=== PATIENT | female | born 1980 | race Caucasian/White ===

== ENCOUNTER 2024-02-05 16:09 | Emergency (ER) | payer SELFPAY ==
--- NOTE | ~2024-02-05 | XR_ITS ---
EXAMINATION: XR TIBIA AND FIBULA, RIGHT CLINICAL INFORMATION: Injury and pain COMPARISON: None available. TECHNIQUE: AP and lateral views of the right tibia and fibula were obtained. FINDINGS: The bones and soft tissues are normal. No fracture. No osseous lesions. XR/XR tibia fibula RT 2V IMPRESSION: Normal right tibia and fibula.
--- NOTE | ~2024-02-05 | XR_ITS ---
EXAMINATION: XR HAND, RIGHT CLINICAL INFORMATION: Injury, pain COMPARISON: None available. TECHNIQUE: PA, lateral, and oblique views of the right hand. FINDINGS: No acute fracture. Alignment is anatomic. Joint spaces are maintained. No erosions or soft tissue calcifications. XR/XR hand RT 2V IMPRESSION: No radiographic evidence of acute abnormality involving the right hand.
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
[2024-02-05 16:21] VITALS: BP 128/71; BP 130/82; PULSE 82; PULSE 85; RESP 16; TEMP 37.2; O2SAT 100; O2SAT 98; BMI 32.6
[2024-02-05] MEDS: Acetaminophen 325 MG TABLET 975 MG PO (16:39)
[2024-02-05 17:50] VITALS: BP 104/70; PULSE 70; RESP 16; TEMP 36.8; O2SAT 97
[2024-02-05 20:18] VITALS: BP 104/70; PULSE 70; RESP 16; TEMP 36.8; O2SAT 97
== END 2024-02-05 20:19 | disposition home or self-care (01) ==
PROVIDERS: Emergency Provider Emergency Medicine Emergency Medical Services
DX: S60.221A Contusion of right hand, initial encounter (principal); S80.11XA Contusion of right lower leg, initial encounter; V43.52XA Car driver injured in collision with other type car in traffic accident, initial encounter; Y93.89 Activity, other specified; Y92.488 Other paved roadways as the place of occurrence of the external cause; Y99.8 Other external cause status
CPT/HCPCS: 73120; 73590; 99283